=== PATIENT | female | born 1945 | race Hispanic/Latino ===

== ENCOUNTER 2017-10-23 07:20 | Observation (INO) | payer MEDICARE ==
[2017-10-23] MEDS ORDERED: Propofol 10 mg/ml Inj (20 ML) ONE ×2 (09:27→09:32)
[2017-10-23] MEDS ORDERED: Midazolam 2 MG/2 ML VIAL ONE (10:09)
--- NOTE | 2017-10-23 13:35 | CARD ---
APPROVED REPORT EKG Measurement Heart [id number] MD [id number] <Conclusion> Normal sinus rhythm Right bundle branch block Moderate voltage criteria for LVH, may be normal variant Anteroseptal infarct, age undetermined Abnormal ECG
[2017-10-23 16:39] VITALS: BMI 27.4
[2017-10-23] MEDS: Sodium Chloride 0.9% 1,000 ML IV SCH (17:54)
[2017-10-24] MEDS: Sodium Chloride 0.9% 1,000 ML IV SCH ×2 (03:03→07:03)
--- NOTE | 2017-10-24 04:29 | PN ---
DATE: 10/23/2017 SUBJECTIVE: This patient is admitted to the same day surgery unit for endoscopy and colonoscopic evaluation in view of the dyspeptic symptoms and also for surveillance colonoscopy. Patient did upper GI endoscopy, revealed Schatzki ring and grade A esophagitis. Biopsies taken to rule out Medeiros's esophagus. Patient also was found to have a small hiatus hernia and angiodysplasia is noticed in the fundus of the stomach and also in the first and second part of the duodenum. They were all treated with Argon plasma coagulation. Patient did have gastritis. Biopsies were taken. Patient subsequently had a colonoscopy, which was incomplete. The scope could not advanced beyond the transverse colon in view of the extreme redundancy of the colon. Patient had multiple diverticulosis noticed in the descending and sigmoid colon area. There was erythematous polyp noticed inside the diverticulum in the sigmoid colon suggestive of possible inflammatory polyp. Patient was noticed to have bradyarrhythmias towards the end of the procedure and also continued to be bradycardic in the recovery room. Discussed with Dr. Loera and Cardiology consult was requested. Patient had seen Dr. Morton, in the past. 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 Patient was sent to the telemetry for observation. Roberta Mcleod MD
[2017-10-24 11:33] LABS: BLOOD UREA NITROGEN 11 mg/dL (7-21); CALCIUM 9.8 mg/dL (8.4-10.5); GFR AFRICAN-AMERICAN > 60; GFR NON-AFRICAN AMERICAN > 60
[2017-10-24 11:34] LABS: BASO # 0.03 K/mm3 (0.0-2.0); BASO % 0.4 % (0.0-3.0); EOS # 0.2 (0.0-0.7); EOS % 2.2 % (1.5-5.0); GRAN # 5.2 (1.4-6.5); HEMOGLOBIN 12.1 g/dL (12.0-16.0); LYMPH # 2.2 (1.2-3.4); LYMPH % 26.8 % (22.0-35.0); MEAN CORPUSCULAR HEMOGLOBIN 26.8 pg (25.0-35.0); MEAN CORPUSCULAR HGB CONC 31.9 g/dl (31.0-37.0); MEAN PLATELET VOLUME 9.6 fl (7.0-11.0); MONO # 0.6 (0.1-0.6); MONO % 7.6 % (1.0-6.0); RBC 4.51 10^6/uL (3.5-6.1); RED CELL DISTRIBUTION WIDTH 13.8 % (11.5-14.5); WHITE BLOOD COUNT 8.3 10^3/ul (4.5-11.0)
[2017-10-24 12:10] LABS: % IRON SATURATION 16 % (20-55); TOTAL IRON BINDING CAPACITY 318 ug/dL (265-497)
[2017-10-24 13:13] LABS: IRON 43 ug/dL (45-180)
[2017-10-24 13:16] VITALS: BP 138/79; PULSE 69; RESP 20; TEMP 97.9
[2017-10-24 13:36] VITALS: O2SAT 99
[2017-10-24 18:20] LABS: FERRITIN 24.4 ng/mL
--- NOTE | 2017-10-25 00:52 | CON ---
DATE: 10/24/2017 REQUESTING PHYSICIAN: Dr. Loera. REASON FOR CONSULTATION: Bradycardia. HISTORY: This is a 72-year-old woman known to me from outpatient followup with a history of hypertension and gastroesophageal reflux disease as well as aortic stenosis, who underwent upper and lower endoscopy yesterday. During the procedure, she was noted to be bradycardiac and telemetry monitoring showed evidence of 2:1 AV block with a narrow QRS complex. She denies any recent symptoms of lightheadedness or syncope. She is unaware of any palpitations either. She does have some intermittent exertional dyspnea. At the time of her endoscopic procedure, she was found to have duodenal, gastric AVMs with a hiatal hernia, Medeiros esophagus, gastritis, diverticulosis, hemorrhoids and colonic polyp. She also has a history of mild depression. MEDICATION AT HOME: Include dicyclomine 20 mg b.i.d., losartan 25 mg daily, melatonin and Wellbutrin 75 mg daily. ALLERGIES: NONE. SOCIAL HISTORY: She does not smoke or drink. She is single, lives alone. FAMILY HISTORY: Unremarkable for premature heart disease. REVIEW OF SYSTEMS: A 10-point review of systems is notable mainly for problems as mentioned above. PHYSICAL EXAMINATION: GENERAL: She is a healthy-appearing middle-aged woman. VITAL SIGNS: Blood pressure is 152/76 with a pulse of 60, respirations are 14. She is afebrile. Telemetry monitoring did show intermittent 2:1 AV block with ventricular rate of 44 at times. HEENT: Head, normocephalic and atraumatic. Carotid upstrokes are diminished and delayed. CHEST: Reveals a few scattered rhonchi. HEART: PMI displaced laterally with a mid peaking systolic murmur noted at the base, radiating to the carotids. ABDOMEN: Soft, nontender with bowel sounds. EXTREMITIES: No clubbing, cyanosis, or edema. SKIN: Warm and dry. PSYCHIATRIC: Normal mood and affect. NEUROLOGIC: No gross motor or sensory is appreciable. DIAGNOSTIC DATA: Potassium 4.4, BUN and creatinine 11 and 0.6. White count 8.3. Hemoglobin and hematocrit 12.1 and 37.9 with a platelet count of 268,000. Electrocardiogram reveals sinus rhythm with right bundle-branch block pattern, nonspecific ST-T abnormalities. IMPRESSION: 1. Intermittent 2:1 atrioventricular block, appears to be supra-Hisian given narrow complex QRS. Appears asymptomatic at the present time. 2. History of moderate aortic stenosis, also asymptomatic. 3. Gastrointestinal findings as noted. RECOMMENDATIONS: From a cardiac standpoint, she appears stable for discharge home at this time. Avoidance of vagotonic agents would be advisable. She likely has some degree of intrinsic conduction system disease and may ultimately need pacemaker implantation should her disease progress. She will continue to be monitored as an outpatient for this as well as progression of her aortic stenosis. She has been instructed to call with any lightheadedness or syncopal episodes as well as any progressive exertional dyspnea. An outpatient Holter monitor will be arranged. Close outpatient followup has been arranged as well. Thank you for this consultation. Mahad Morton MD MTDD
--- NOTE | 2017-10-25 22:22 | DS ---
DATE OF DISCHARGE: 10/24/2017 DISCHARGE DIAGNOSES: 1. Gastric arteriovenous malformation. 2. Diverticulosis. 3. Colonic polyps. 4. Iron deficiency. 5. Depression. 6. Bradycardia. HOSPITAL COURSE: The patient was admitted for colonoscopy, endoscopy as outpatient. She developed bradyarrhythmias, admitted to the hospital for monitoring. Cardiology evaluation done during hospitalization by Dr. Dennis. He cleared her for discharge home. Outpatient workup was done including Holter and followup Doppler for aortic stenosis. She is currently in stable condition. PHYSICAL EXAMINATION ON DISCHARGE: GENERAL: Comfortable in bed, in no acute distress. VITAL SIGNS: Temperature 97.9, heart rate 69 per minute, blood pressure 138/79 and respiratory rate 20 per minute, oxygen saturation 99% room air. HEENT: Pallor positive. NECK: No lymphadenopathy. CHEST: Air entry present and equal bilateral. No added sound. CARDIOVASCULAR: S1, S2 normal. No murmur. No gallop. ABDOMEN: Soft and nontender. No hepatosplenomegaly. WHEEL ALIGNMENT MECHANIC: Alert, oriented x3. No focal sensory-motor deficit. CONDITION ON DISCHARGE: Stable. DISPOSITION: Discharge home. MEDICATIONS: Resume home medications. Follow up with Dr. Mcleod in 1 week. She has chronic gastritis also. H. pylori pending. Follow up with Dr. Silverman for iron-deficiency anemia. Follow up with Dr. Fisher in 1 week. Diet regular. Follow up with Dr. Dennis in 1 week. Time spent in preparing discharge, coordinating care 60 minutes. Annette Silverman MD
--- NOTE | 2017-10-25 23:05 | HP ---
HISTORY OF PRESENT ILLNESS: Ms. Givens is a 72-year-old female, admitted to the hospital for endoscopy colonoscopy. She developed timmy-tachy arrhythmia and was hospitalized for further evaluation. EGD showed gastric AV malformation that was argon laser'd. Hiatal hernia, Barrette esophagus, gastritis, diverticulosis, hemorrhoids, colonic polyps. She also has a history of mild depression. EKG showed AV block. PAST MEDICAL HISTORY: Hiatal hernia, Medeiros esophagus, gastritis, diverticulosis, depression, hypertension. HOME MEDICATIONS: Dicyclomine, losartan 25, melatonin, Wellbutrin. ALLERGIES: NO KNOWN DRUG ALLERGIES. SOCIAL HISTORY: Nonsmoker. No history of alcohol abuse. FAMILY HISTORY: Noncontributory. PAST SURGICAL HISTORY: None. REVIEW OF SYSTEMS: As per HPI. Rest of 12-point review of systems reviewed negative. PHYSICAL EXAMINATION: GENERAL: Comfortable in bed, in no acute distress. VITAL SIGNS: Temperature 97.8, blood pressure 152/70, heart rate is 60 per minute, respiratory rate 14 per minute. HEENT: Normal. CHEST: Air entry present and equal bilateral. No added sounds. CARDIOVASCULAR: S1 and S2 normal. No murmur. No gallop. ABDOMEN: Soft, nontender. No hepatosplenomegaly. EXTREMITIES: No edema. NEUROLOGICAL: Alert and oriented x3. No focal sensory or motor deficits. LABORATORY DATA: Hemoglobin 12.1, hematocrit 37.9, platelet count 268. Potassium 4.4, creatinine 1.1. ASSESSMENT: 1. Gastric arteriovenous malformation. 2. Diverticulosis. 3. Colonic polyp. 4. Intermittent 2:1 atrioventricular block. 5. Moderate aortic stenosis, asymptomatic. PLAN: She will be admitted to telemonitoring. Cardiology consultation, Dr. Dennis requested, appreciated the consult and consult note reviewed. He will follow up her as outpatient for aortic stenosis. Outpatient Holter monitoring was suggested. She might have chronic GI bleed. We will send iron studies because of AV malformation and polyp in the colon. Biopsy were taken, pathology pending. We will continue Wellbutrin for depression. Annette Silverman MD
== END 2017-10-24 14:04 | disposition home or self-care (01) ==
LOC: ENDO 07:20 → 2RSO 12:20
PROVIDERS: ADMIT Internal Medicine Nephrology; ATTEND Internal Medicine Nephrology
DX: I44.0 Atrioventricular block, first degree (principal); K21.0 Gastro-esophageal reflux disease with esophagitis; K31.819 Angiodysplasia of stomach and duodenum without bleeding; K57.30 Diverticulosis of large intestine without perforation or abscess without bleeding; K63.5 Polyp of colon; E61.1 Iron deficiency; F32.89 Other specified depressive episodes; I10 Essential (primary) hypertension; I35.0 Nonrheumatic aortic (valve) stenosis; K22.2 Esophageal obstruction; K22.70 Barrett's esophagus without dysplasia; K29.70 Gastritis, unspecified, without bleeding; K44.9 Diaphragmatic hernia without obstruction or gangrene; K64.9 Unspecified hemorrhoids; Z79.899 Other long term (current) drug therapy; Z85.3 Personal history of malignant neoplasm of breast; E78.00 Pure hypercholesterolemia, unspecified; M19.90 Unspecified osteoarthritis, unspecified site; Z98.49 Cataract extraction status, unspecified eye; K59.00 Constipation, unspecified; E78.5 Hyperlipidemia, unspecified
CPT/HCPCS: 36415; 80048; 82728; 83540; 83550; 85025; 88305; 88312; 88342; 93005; G0378; J2001; J2250; J2704; J3010; J7040

== ENCOUNTER 2018-03-16 09:57 | Day surgery (SDC) | payer MEDICARE, OTHER ==
[2018-03-11 09:45] VITALS: BMI 27.6
[2018-03-16 11:10] LABS: BASO # 0.02 K/mm3 (0.0-2.0); BASO % 0.2 % (0.0-3.0); EOS # 0.1 (0.0-0.7); EOS % 1.6 % (1.5-5.0); GRAN # 5.33 (1.4-6.5); GRAN % 66.6 % (50.0-68.0); HEMOGLOBIN 12.2 g/dL (12.0-16.0); LYMPH # 1.7 (1.2-3.4); LYMPH % 21.7 % (22.0-35.0); MEAN CORPUSCULAR HEMOGLOBIN 26.4 pg (25.0-35.0); MEAN CORPUSCULAR HGB CONC 32.2 g/dl (31.0-37.0); MEAN PLATELET VOLUME 9.3 fl (7.0-11.0); MONO # 0.8 (0.1-0.6); MONO % 9.9 % (1.0-6.0); RBC 4.62 10^6/uL (3.5-6.1); RED CELL DISTRIBUTION WIDTH 14.6 % (11.5-14.5)
[2018-03-16 11:17] LABS: INR 1.13; PARTIAL THROMBOPLASTIN TIME 32.8 Seconds (25.1-36.5)
[2018-03-16 11:23] LABS: BLOOD UREA NITROGEN 12 mg/dL (7-21); CALCIUM 9.9 mg/dL (8.4-10.5); GFR NON-AFRICAN AMERICAN > 60
[2018-03-16] MEDS ORDERED: Lidocaine 1% Inj (20ml) ONE (13:10)
[2018-03-16] MEDS ORDERED: Midazolam 2 MG/2 ML VIAL ONE (13:41)
[2018-03-16] MEDS ORDERED: Midazolam 2 MG/2 ML VIAL IVP ONE (14:37)
[2018-03-16] MEDS ORDERED: Oxycodone/Acetaminophen 5/325 mg Tab PO PRN (15:18)
[2018-03-16] MEDS ORDERED: Sodium Chloride 0.45% 1,000 ML IV SCH (15:30)
[2018-03-16 15:45] VITALS: RESP 18; TEMP 98.3
--- NOTE | 2018-03-16 16:28 | RAD ---
Date of service: 03/16/2018 HISTORY: lt lung bx COMPARISON: 01/19/2018 FINDINGS: LUNGS: There is a large mass in the left upper lobe measuring 6 cm. PLEURA: There is no post biopsy pneumothorax CARDIOVASCULAR: Normal. OSSEOUS STRUCTURES: No significant abnormalities. VISUALIZED UPPER ABDOMEN: Normal. OTHER FINDINGS: None. IMPRESSION: No evidence of post biopsy pneumothorax
[2018-03-16 16:37] VITALS: BP 115/58; PULSE 81; O2SAT 96
--- NOTE | 2018-03-16 18:29 | CT ---
PROCEDURE: CT guided left upper lobe lung biopsy. HISTORY: Previous smoker. 6.5 cm left upper lobe lung mass. Evaluate for malignancy. PHYSICIAN(S): Dereje Fajardo MD. TECHNIQUE: The relative risks and indications of the procedure were explained to the patient and consent obtained. The patient was placed supine on the CT scanner and preliminary images through the lungs obtained. Conscious sedation and monitoring were provided throughout the procedure by a nurse. There is a 6.5 cm noncalcified mass in the left upper lobe. A left anterior oblique approach was selected and the area prepped and draped in the usual sterile fashion. 1% Xylocaine was used to anesthetize the skin and soft tissues. A 19 gauge guiding needle was advanced into the 6.5 cm left upper lobe lung mass. Its position was confirmed with CT. Using coaxial technique, multiple core biopsies were obtained. The postprocedure images show no evidence of large pneumothorax or significant hemorrhage.. IMPRESSION: 1. CT-guided left upper lobe lung biopsy as described above.
== END 2018-03-16 17:30 | disposition home or self-care (01) ==
LOC: SDS 09:57
PROVIDERS: ATTEND Radiology Vascular & Interventional Radiology
DX: C34.12 Malignant neoplasm of upper lobe, left bronchus or lung (principal); I38 Endocarditis, valve unspecified; Z85.3 Personal history of malignant neoplasm of breast; Z87.891 Personal history of nicotine dependence
CPT/HCPCS: 32405; 36415; 71045; 77012; 80048; 85025; 85610; 85730; 88305; J2250; J2405; J3010; J7030